=== PATIENT | female | born 1965 | race Caucasian/White ===

== ENCOUNTER 2018-09-24 15:36 | Day surgery (SDC) | payer BC, OTHER ==
[~2018-09-24 15:36] MED LIST: DEXAMETHASONE SOD PHOSPHATE INJ 4 MG/1 ML VIAL ONE; ONDANSETRON HCL INJ/PF 4 MG/2 ML SDV ONE; SUCCINYLCHOLINE CHLORIDE INJ 200 MG/10 ML VIAL ONE
[2018-09-24] MEDS ORDERED: DIPHENHYDRAMINE HCL 50 MG/ML VIAL ONE (17:18)
[2018-09-24] MEDS ORDERED: FENTANYL CITRATE INJ/PF 100 MCG/2 ML AMPUL ONE (20:48)
[2018-09-24] MEDS ORDERED: MIDAZOLAM 2 MG/2 ML INJ ONE (20:48)
[2018-09-24] MEDS ORDERED: PROPOFOL INJ 200 MG/20 ML VIAL IV ONE (20:48)
[2018-09-24] MEDS ORDERED: LIDOCAINE 2% INJ-PF (100 MG/5 ML) SYRINGE ONE (20:48)
[2018-09-24] MEDS ORDERED: EPHEDRINE SULFATE INJ 50 MG/1 ML AMPULE ONE (20:48)
[2018-09-24] MEDS ORDERED: DIPHENHYDRAMINE HCL 50 MG/ML VIAL IV PRN (21:52)
[2018-09-24] MEDS ORDERED: PROMETHAZINE HCL INJ 25 MG/1 ML VIAL IV PRN ×2 (21:52)
[2018-09-24] MEDS ORDERED: MEPERIDINE HCL/PF INJ 25 MG/1 ML DISP.SYRIN IV PRN (21:52)
[2018-09-24] MEDS ORDERED: FENTANYL CITRATE INJ/PF 100 MCG/2 ML AMPUL IV PRN ×3 (21:52)
[2018-09-24] MEDS ORDERED: ONDANSETRON HCL INJ/PF 4 MG/2 ML SDV IV PRN ×2 (21:52→23:56)
[2018-09-25 06:50] LABS: HEMATOCRIT 35.1 % (36.0-47.0); HEMOGLOBIN 12.1 g/dL (12.0-15.5); MEAN CORPUSCULAR HEMOGLOBIN 30.9 pg (27.0-33.4); MEAN CORPUSCULAR HGB CONC 34.4 g/dL (32.0-36.0); MEAN CORPUSCULAR VOLUME 90 fl (80-97); PLATELET COUNT 151 10^3/uL (150-450); RED BLOOD COUNT 3.91 10^6/uL (3.72-5.28); RED CELL DISTRIBUTION WIDTH 14.3 % (11.5-14.0); WHITE BLOOD COUNT 6.3 10^3/uL (4.0-10.5)
[2018-09-25 07:05] LABS: ALANINE AMINOTRANSFERASE 501 U/L (9-52); ALBUMIN 3.7 g/dL (3.5-5.0); ALKALINE PHOSPHATASE 278 U/L (38-126); ASPARTATE AMINO TRANSFERASE 272 U/L (14-36); BILIRUBIN,DIRECT 2.3 mg/dL (0.0-0.4); BILIRUBIN,TOTAL 4.3 mg/dL (0.2-1.3); TOTAL PROTEIN 6.1 g/dL (6.3-8.2)
--- NOTE | 2018-09-25 08:10 | Operative Report ---
Operative Report DATE OF SURGERY: 09/24/18 Operative Report: Pre-op diagnosis: Jaundice post chplecystectomy Post-op diagnosis: Multiple small CBD stones Surgery: ERCP with sphincterotomy and balloon stone extraction Medications: As per anesthesia Tissue removed: None Procedure: After informed consent obtained from patient, the throat was sprayed with Hurricane and conscious sedation was achieved. The ERCP endoscope was then inserted into the esophagus blindly and advanced into the stomach. The duodenum was entered and the ampulla was identified. Using the triple-lumen sphincterotomy catheter the common bile duct was freely cannulated. A cholangiogram was obtained which showed possible filling defect in the distal common bile duct. The common bile duct was slightly dilated. A good sized sphincterotomy was then performed using the endocut mode. The catheter was removed over the guidewire before a 9-12 mm balloon catheter was inserted. The balloon was inflated to 12 mm in the proximal common bile duct and pulled down the duct. Three small yellow stones were extracted. The duct was swept one more time. A balloon occlusion cholangiogram was normal. The pancreatic duct was intentionally not cannulated. Patient tolerated procedure well. Findings Common bile duct: Slightly dilated with small stones. Intrahepatic ducts: Normal Pancreatic duct: Not cannulated Plan:Follow LFT OPERATION: .
--- NOTE | 2018-09-25 08:22 | RADIOLOGY REPORT (SQ) ---
EXAM DESCRIPTION: NO CHG FLUORO COMPLETED DATE/TIME: 09/24/2018 10:22 pm REASON FOR STUDY: ERCP K80.51 CALCULUS OF BILE DUCT W/O CHOLANGITIS OR CHOLECYST W COMPARISON: None. FLUOROSCOPY TIME: 2.3 minutes 5 Images saved to PACS TECHNIQUE: Intra-operative images acquired during surgical procedure to evaluate progress. NUMBER OF IMAGES: 5 LIMITATIONS: None. FINDINGS: Limited fluoroscopic images demonstrate the endoscope overlying 2nd portion of duodenum. Cannulation of the CBD with opacification. Opacification and dilation of the distal CBD with intralu ann filling defect noted. No significant dilation of the intrahepatic ducts after balloon occlusio n and retrograde opacification. Please see operative report for detailed description of procedure. IMPRESSION: IMAGE(S) OBTAINED DURING PROCEDURE. COMMENT: Quality ID [id number]: Final reports for procedures using fluoroscopy that document radiation exp osure indices, or exposure time and number of fluorographic images (if radiation exposure indices are not available) Please consult full operative report of the attending physician for description of the procedure. TECHNICAL DOCUMENTATION: JOB ID: [id number] [employer]- All Rights Reserved Reading location - IP/workstation name: [email or web address]
--- NOTE | 2018-09-25 08:39 | RADIOLOGY REPORT (SQ) ---
EXAM DESCRIPTION: ENDO CATH/BILIARY DUCT COMPLETED DATE/TIME: 09/24/2018 10:22 pm REASON FOR STUDY: ERCP K80.51 CALCULUS OF BILE DUCT W/O CHOLANGITIS OR CHOLECYST W COMPARISON: None. FLUOROSCOPY TIME: 2.3 minutes 5 images saved to PACS. TECHNIQUE: Intra-operative images acquired during surgical procedure to evaluate progress. NUMBER OF IMAGES: 5 LIMITATIONS: None. FINDINGS: Limited fluoroscopic images demonstrate the endoscope overlying 2nd portion of the the duo denum. Cannulation of the CBD with opacification. Opacification and dilation of the distal CBD with intraluminal filling defect noted. No significant dilation of the intrahepatic ducts after balloon occlusion and retrograde opacification. Please see operative report for detailed description of the procedure. IMPRESSION: INTRA PROCEDURAL IMAGING ABOVE . COMMENT: Quality ID 145: Final reports for procedures using fluoroscopy that document radiation exp osure indices, or exposure time and number of fluorographic images (if radiation exposure indices are not available) Please consult full operative report of the attending physician for description of the procedure. TECHNICAL DOCUMENTATION: JOB ID: [id number] [employer]- All Rights Reserved Reading location - IP/workstation name: [email or web address]
[2018-09-25 10:30] VITALS: BP 132/62
== END 2018-09-25 10:50 | disposition home or self-care (01) ==
LOC: END 15:36 → 2N 23:00 → END 09-25 10:50
PROVIDERS: ATTEND Internal Medicine Gastroenterology
DX: K80.51 Calculus of bile duct without cholangitis or cholecystitis with obstruction (principal); R94.5 Abnormal results of liver function studies; E03.9 Hypothyroidism, unspecified; Z87.891 Personal history of nicotine dependence; E66.9 Obesity, unspecified; Z68.41 Body mass index [BMI] 40.0-44.9, adult; Z79.899 Other long term (current) drug therapy; Z79.1 Long term (current) use of non-steroidal anti-inflammatories (NSAID)
CPT/HCPCS: 43264; 43262; 36415; 84132; 85027; 80076; 74328; J2250; J1100; J1200; J3010; J2001; J0330; J2405; J2704; 732; J3490

== ENCOUNTER → 2018-09-24 | Outpatient (CLI) | payer BC, OTHER ==
[2018-09-24 13:03] LABS: HEMATOCRIT 38.7 % (36.0-47.0); HEMOGLOBIN 12.9 g/dL (12.0-15.5); MEAN CORPUSCULAR HEMOGLOBIN 30.3 pg (27.0-33.4); MEAN CORPUSCULAR HGB CONC 33.5 g/dL (32.0-36.0); MEAN CORPUSCULAR VOLUME 91 fl (80-97); PLATELET COUNT 194 10^3/uL (150-450); RED BLOOD COUNT 4.27 10^6/uL (3.72-5.28); WHITE BLOOD COUNT 5.5 10^3/uL (4.0-10.5)
[2018-09-24 13:27] LABS: ALANINE AMINOTRANSFERASE 532 U/L (9-52); ALBUMIN 4.2 g/dL (3.5-5.0); ALKALINE PHOSPHATASE 313 U/L (38-126); ASPARTATE AMINO TRANSFERASE 271 U/L (14-36); BILIRUBIN,DIRECT 2.9 mg/dL (0.0-0.4); BILIRUBIN,TOTAL 4.9 mg/dL (0.2-1.3); LIPASE 53.8 U/L (23-300); TOTAL PROTEIN 6.9 g/dL (6.3-8.2)
== END ==
LOC: LAB 12:49
PROVIDERS: ATTEND Physician Assistant Surgical
DX: K80.51 Calculus of bile duct without cholangitis or cholecystitis with obstruction (principal); R17 Unspecified jaundice
CPT/HCPCS: 36415; 80076; 83690; 85027